=== PATIENT | female | born 2000 | race African-American/Black ===

== ENCOUNTER 2022-03-31 17:31 | Emergency (ER) | payer MEDICAID ==
[~2022-03-31] VITALS: Ht 149.9 cm; Wt 45.0 kg
[2022-03-31 17:55] VITALS: BP 115/69
== END 2022-03-31 20:57 | disposition left against medical advice (07) ==
LOC: ER 17:57
DX: Z53.21 Procedure and treatment not carried out due to patient leaving prior to being seen by health care provider (principal)